=== PATIENT | female | born 1955 | race Caucasian/White ===

== ENCOUNTER 2021-04-11 21:13 | Emergency (ER) | payer MEDICARE, OTHER ==
--- NOTE | 2021-04-11 22:22 | EDM.PDOC ---
ED HPI GENERAL MEDICAL PROBLEM - General Chief Complaint: General Stated Complaint: ALLERGIC REACTION? Time Seen by Provider: 04/11/21 22:05 Source of Information: Reports: Patient History Limitations: Reports: No Limitations - History of Present Illness INITIAL COMMENTS - FREE TEXT/NARRATIVE: Susan is a 65-year-old female presenting to the ED for evaluation of rash, body aches, malaise, and redness of her left upper arm several days following receiving her pneumococcal vaccination in the clinic. Patient denies any shortness of breath, difficulty swallowing, or throat swelling. She has had some generalized of ague. She has not had any significant fever. She was concerned because her daughter read the data sheet for the vaccination and was concerned that this was a severe reaction prompting her to have her mother come in to be evaluated. Left Upper Arm Pain Score (Numeric/FACES): 2 - Related Data Allergies Allergy/AdvReac Type Severity Reaction Status Date / Time naproxen Allergy Tachycardia Verified 04/11/21 21:46 Past Medical History Cardiovascular History: Reports: High Cholesterol, Hypertension Respiratory History: Reports: Sleep Apnea Gastrointestinal History: Reports: Diverticulosis [employer] History: Reports: Dysfunctional Uterine Bleeding, Musculoskeletal History: Reports: Arthritis Neurological History: Reports: TIA Hematologic History: Reports: Blood Transfusion(s) - Infectious Disease History Infectious Disease History: Reports: Chicken Pox, Measles, Mumps - Past Surgical History Cardiovascular Surgical History: Reports: Carotid Stents GI Surgical History: Reports: Appendectomy, Colon, Colonoscopy Other GI Surgeries/Procedures: colon resection Female Surgical History: Reports: Hysterectomy Social & Family History - Tobacco Use Tobacco Use Status *Q: Never Tobacco User - Caffeine Use Caffeine Use: Reports: Coffee - Alcohol Use Days Per Week of Alcohol Use: 6 Number of Drinks Per Day: 3 Total Drinks Per Week: 18 - Recreational Drug Use Recreational Drug Use: Yes ED ROS GENERAL - Review of Systems Review Of Systems: See Below Constitutional: Reports: Malaise HEENT: Reports: No Symptoms Respiratory: Reports: No Symptoms Cardiovascular: Reports: No Symptoms Endocrine: Reports: No Symptoms GI/Abdominal: Reports: No Symptoms : Reports: No Symptoms Musculoskeletal: Reports: Muscle Pain (Mild body aches) Skin: Reports: Erythema (Splotchy erythema of the left upper arm with induration) Neurological: Reports: No Symptoms Psychiatric: Reports: No Symptoms Hematologic/Lymphatic: Reports: No Symptoms Immunologic: Reports: No Symptoms ED EXAM, GENERAL - Physical Exam Exam: See Below Exam Limited By: No Limitations General Appearance: Alert, No Apparent Distress Throat/Mouth: Normal Inspection, Normal Oropharynx, Normal Voice, No Airway Compromise Head: Atraumatic, Normocephalic Neck: Normal Inspection, Supple Respiratory/Chest: No Respiratory Distress, Lungs Clear, Normal Breath Sounds Cardiovascular: Normal Peripheral Pulses, Regular Rate, Rhythm Extremities: Normal Inspection, Normal Range of Motion Neurological: Alert, Oriented, Normal Cognition, No Motor/Sensory Deficits Skin Exam: Erythema (Localized reaction to the subcutaneous pneumococcal vaccination), Increased Warmth (Localized reaction to the subcutaneous pneumococcal vaccination), Other (Patchy induration in the area of the upper left arm around the site of the pneumococcal vaccination which was given subcutaneously.) Lymphatic: No Adenopathy Course - Vital Signs Last Recorded V/S: Last Vital Signs Temp 35.9 C L 04/11/21 21:36 Pulse 91 04/11/21 21:36 Resp 16 04/11/21 21:36 BP 163/85 H 04/11/21 21:36 Pulse Ox 97 04/11/21 21:36 - Re-Assessments/Exams Free Text/Narrative Re-Assessment/Exam: 04/11/21 22:22 majority of the symptoms are related to the vaccination directly. There is localized erythema with induration which is likely immune mediated. There is no evidence for urticaria. The patient has no difficulty with breathing or swallowing. There is no throat swelling. There is no other significant rash other than the local reaction in the upper arm. Certainly at this time there is nothing that requires intervention. I did instruct patient on indications to return to the ED but she should recover fully without further incident. Departure - Departure Time of Disposition: 22:16 Disposition: Home, Self-Care 01 Clinical Impression: Local reaction to pneumococcal vaccine Qualifiers: Encounter type: initial encounter Qualified Code(s): T50.A95A - Adverse effect of other bacterial vaccines, initial encounter - Discharge Information Referrals: Yissel Archuleta DO [Primary Care Provider] - Care Plan Goals: It appears that you are having a localized reaction to the pneumococcal vaccine. I would recommend taking Tylenol or ibuprofen for the pain and body aches. You may try using Benadryl cream, however, this is not usually caused by histamine and likely will not have much benefit. I expect it will clear up in the next day or 2 as your immune system starts to wane from the initial reaction. Return to the ED should you develop any difficulty with swallowing or breathing. This is unlikely to happen this far into the reaction. Sepsis Event Note (ED) - Focused Exam Vital Signs: Vital Signs Temp Pulse Resp BP Pulse Ox 04/11/21 21:36 35.9 C L 91 16 163/85 H 97 - Problem List & Annotations (1) Local reaction to pneumococcal vaccine SNOMED Code(s): 605063477 Code(s): T50.A95A - ADVERSE EFFECT OF OTHER BACTERIAL VACCINES, INIT ENCNTR Status: Acute Priority: Low Current Visit: Yes Qualifiers: Encounter type: initial encounter Qualified Code(s): T50.A95A - Adverse effect of other bacterial vaccines, initial encounter - Problem List Review Problem List Initiated/Reviewed/Updated: Yes
== END 2021-04-11 22:35 | disposition home or self-care (01) ==
LOC: JP.ED 21:13
DX: R21 Rash and other nonspecific skin eruption (principal); T50.A95A Adverse effect of other bacterial vaccines, initial encounter; I10 Essential (primary) hypertension; Z88.5 Allergy status to narcotic agent; Z79.899 Other long term (current) drug therapy
CPT/HCPCS: 99282; 99283

== ENCOUNTER 2022-02-18 14:21 | Emergency (ER) | payer MEDICARE, OTHER ==
[2022-02-18] MEDS ORDERED: Sodium Chloride 0.9% 1,000 ML IV SCH (14:30)
[2022-02-18] MEDS ORDERED: Sodium Chloride 0.9% 10 ML Syringe FLUSH PRN (14:30)
[2022-02-18] MEDS ORDERED: Iopamidol 755 Mg/ML 100 ML Bottle IV SCH (15:45)
[2022-02-18] MEDS ORDERED: Sodium Chloride 0.9% 75 ML IV SCH (15:45)
[2022-02-18] MEDS ORDERED: Clopidogrel 75 MG Tab PO ONE (18:26)
[2022-02-18] MEDS ORDERED: Aspirin 81 MG Tab.Chew PO ONE (18:26)
== END 2022-02-18 18:50 | disposition home or self-care (01) ==
LOC: JP.ED 14:21
DX: G45.9 Transient cerebral ischemic attack, unspecified (principal); E78.00 Pure hypercholesterolemia, unspecified; I10 Essential (primary) hypertension; Z86.73 Personal history of transient ischemic attack (TIA), and cerebral infarction without residual deficits; Z88.5 Allergy status to narcotic agent; Z88.0 Allergy status to penicillin; Z79.82 Long term (current) use of aspirin; Z79.899 Other long term (current) drug therapy; Z79.02 Long term (current) use of antithrombotics/antiplatelets
CPT/HCPCS: 36415; 70450; 70496; 70498; 80053; 80307; 81001; 83605; 84484; 85025; 93005; 93010; 99283; 99284-25; A9270-GY; J3490; J7030; Q9967

== ENCOUNTER 2024-08-09 08:50 | Day surgery (SDC) | payer MEDICARE, OTHER ==
[~2024-08-09 08:50] MED LIST: Sodium Chloride 0.9% 1,000 ML IV SCH
[2024-08-09] MEDS: Sodium Chloride 0.9% 1,000 ML IV SCH (09:43)
[2024-08-09] MEDS ORDERED: Propofol 200 MG/20 ML SDV ONE (11:09)
[2024-08-09] MEDS ORDERED: fentaNYL 50 MCG/ML SDV ONE (11:09)
[2024-08-09] MEDS ORDERED: Midazolam 1 MG/ML 2 ML SDV ONE (11:09)
== END 2024-08-09 12:50 | disposition home or self-care (01) ==
LOC: JP.SDS 08:50
PROVIDERS: ATTEND Surgery
DX: K62.1 Rectal polyp (principal); K57.30 Diverticulosis of large intestine without perforation or abscess without bleeding; I10 Essential (primary) hypertension; I73.9 Peripheral vascular disease, unspecified; D64.9 Anemia, unspecified; K22.89 Other specified disease of esophagus
CPT/HCPCS: 43239; 45385; J2250; J2704; J3010; J7030; 88305